=== PATIENT | male | born 1960 | race Caucasian/White ===

== ENCOUNTER 2022-11-15 12:34 | Inpatient (IN) | payer BC, SELFPAY ==
[~2022-11-15 12:34] MED LIST: Iopamidol 300 61% 100 ML VIAL FS ONE
[2022-11-15] MEDS ORDERED: Morphine 4 MG/ML VIAL ONE (12:52)
[2022-11-15 12:57] LABS: #Basophils 0.1 10x3/uL (0.0-0.2); #Eosinphils 0.2 10x3/uL (0.0-0.5); #Monocytes 1.1 10x3/uL (0.0-1.1); #Neutrophils 7.7 10x3/uL (1.5-8.4); %Basophils 0.9 % (0.0-2.0); %Eosinophils 1.2 % (0.0-6.0); %Lymphocytes 29.2 % (18.0-47.0); %Monocytes 8.9 % (0.0-10.0); %Neutrophils 59.6 % (40.0-75.0); Hemoglobin 15.3 g/dL (13.5-17.5); Mean Corpuscular HGB CONC 34.9 g/dL (32.0-36.0); Mean Corpuscular Hemoglobin 33.8 pg (27.0-33.0); Mean Corpuscular Volume 96.7 fl (81.2-95.1); Platelet Count 251 10x3/uL (150-450); RBC Distribution Width 13.1 % (11.5-14.5); Red Blood Cell (RBC) Count 4.53 10x6/uL (4.32-5.72); White Blood Cell (WBC) Count 12.9 10x3/uL (3.5-10.5)
[2022-11-15 13:15] LABS: ALT (SGPT) 13 U/L (8-55); AST (SGOT) 14 U/L (5-34); Albumin 4.4 g/dL (3.4-4.8); Alkaline Phosphatase 60 U/L (40-110); Anion Gap 17 mmol/L (10-20); BUN (Urea Nitrogen) 13 mg/dL (8.4-25.7); Bilirubin, Total 0.3 mg/dL (0.2-1.2); Calc. Creatinine Clearance 0 mL/min (70-130); Calcium 9.4 mg/dL (7.8-10.44); Carbon Dioxide 21 mmol/L (23-31); Chloride 106 mmol/L (98-107); Estimated GFR 97; Globulin 2.7 g/dL (2.4-3.5); Glucose 128 mg/dL (80-115); Magnesium 2.1 mg/dL (1.6-2.6); Potassium 3.7 mmol/L (3.5-5.1); Protein, Total 7.1 g/dL (5.8-8.1); Sodium 140 mmol/L (136-145)
[2022-11-15] MEDS ORDERED: Nitroglycerin 0.4 MG TAB 1 EACH ONE (13:33)
[2022-11-15] MEDS ORDERED: Ondansetron PF 4 MG/2 ML Vial ONE (13:54)
[2022-11-15 14:06] LABS: PTT 24.2 sec (22.0-33.0); Prothrombin Time 10.5 sec (9.5-12.1)
[2022-11-15] MEDS ORDERED: HYDROmorphone 0.5 MG/0.5 ML SYRINGE ONE ×2 (14:12→17:01)
[2022-11-15] MEDS ORDERED: Nitroglycerin 50 MG/250 ML BOT 250 ML ONE (14:21)
[2022-11-15 14:22] LABS: CKMB 1.8 ng/mL (0-6.6)
[2022-11-15 15:47] LABS: Troponin I 0.186 ng/mL (< 0.028)
[2022-11-15] MEDS ORDERED: Heparin 25,000 units/D5W 500 ML ONE (16:31)
[2022-11-15] MEDS ORDERED: Aspirin 325 MG TAB ONE (16:32)
[2022-11-15] MEDS ORDERED: Heparin 5,000 UNITS/ML VIAL ONE (17:07)
[2022-11-15] MEDS ORDERED: Morphine 2 MG/ML VIAL SLOW IVP PRN (17:26)
[2022-11-15] MEDS ORDERED: Nitroglycerin 0.4 MG TAB (25 Tab Bottle) SL PRN (17:26)
[2022-11-15] MEDS ORDERED: Nitroglycerin 50 MG/250 ML BOT 250 ML IVPB SCH (17:30)
[2022-11-15] MEDS ORDERED: Heparin 25,000 units/D5W 500 ML IVPB SCH (17:30)
[2022-11-15] MEDS ORDERED: Aspirin 325 mg Enteric Coated Tablet PO SCH (17:30)
[2022-11-15] MEDS ORDERED: Heparin 10,000 UNITS/ 10 ML VIAL SLOW IVP SCH (17:30)
[2022-11-15] MEDS ORDERED: Aspirin 300 MG Suppository PR PRN (17:46)
[2022-11-15 18:23] LABS: Hemoglobin 15.7 g/dL (13.5-17.5); Platelet Count 232 10x3/uL (150-450)
[2022-11-15 18:50] LABS: Troponin I 1.265 ng/mL (< 0.028)
[2022-11-15 18:56] LABS: SARS-CoV-2 NAA Rapid Test Not Detected (NotDetected)
[2022-11-15 19:17] VITALS: BMI 25.8
[2022-11-15] MEDS: Nicotine 14 MG PATCH TD SCH (20:14)
[2022-11-15] MEDS ORDERED: Metoprolol Tartrate 25 MG TAB PO SCH ×2 (21:00→23:59)
[2022-11-15] MEDS ORDERED: Rosuvastatin 20 MG TAB PO SCH (21:00)
[2022-11-15] MEDS: Ondansetron PF 4 MG/2 ML Vial IVP PRN (22:39)
[2022-11-15 23:40] LABS: Hemoglobin 15.2 g/dL (13.5-17.5)
[2022-11-15] MEDS: Pantoprazole 40 MG VIAL IVP SCH (23:46)
[2022-11-15 23:51] LABS: Anion Gap 16 mmol/L (10-20); BUN (Urea Nitrogen) 15 mg/dL (8.4-25.7); Calc. Creatinine Clearance 109 mL/min (70-130); Carbon Dioxide 23 mmol/L (23-31); Chloride 102 mmol/L (98-107); Potassium 4.3 mmol/L (3.5-5.1); Sodium 137 mmol/L (136-145)
[2022-11-15 23:52] LABS: Calcium 9.3 mg/dL (7.8-10.44); Estimated GFR 100; Glucose 146 mg/dL (80-115); Magnesium 2.1 mg/dL (1.6-2.6)
[2022-11-15] MEDS ORDERED: Sodium Chloride 0.9% 1,000 ML IV SCH (23:59)
[2022-11-15] MEDS ORDERED: TICAGRELOR 90 MG TABLET PO SCH (23:59)
[2022-11-16] MEDS ORDERED: Lactated Ringer's 500 ML IV SCH (03:30)
[2022-11-16] MEDS ORDERED: Pantoprazole 40 MG VIAL IVP SCH (03:30)
[2022-11-16 03:36] LABS: Hemoglobin 15.2 g/dL (13.5-17.5); Mean Corpuscular HGB CONC 34.4 g/dL (32.0-36.0); Mean Corpuscular Hemoglobin 33.9 pg (27.0-33.0); Mean Corpuscular Volume 98.4 fl (81.2-95.1); Mean Platelet Volume 10.6 fl (7.4-10.4); Platelet Count 217 10x3/uL (150-450); RBC Distribution Width 13.1 % (11.5-14.5); Red Blood Cell (RBC) Count 4.49 10x6/uL (4.32-5.72); White Blood Cell (WBC) Count 22.6 10x3/uL (3.5-10.5)
[2022-11-16 03:44] LABS: PTT 26.1 sec (22.0-33.0); Prothrombin Time 11.1 sec (9.5-12.1)
[2022-11-16 03:49] LABS: Cardiac Risk 4.4 (Less than 4.5)
[2022-11-16 03:56] LABS: MDiff Complete? YES
[2022-11-16 04:00] LABS: Band 7 % (5-11); Eosinophils 1 % (0-10); Lymphocytes 5 % (21-51); Monocytes 8 % (0-10); Neutrophil 79 % (42-75)
[2022-11-16 04:05] LABS: Platelet Morphology Comment Appears Adequate; RBC Morphology Normal
[2022-11-16] MEDS: Ondansetron PF 4 MG/2 ML Vial IVP PRN (04:51)
[2022-11-16] MEDS ORDERED: Lactated Ringer's 1,000 ML IV SCH (07:45)
[2022-11-16] MEDS ORDERED: Lidocaine 1% (PF) 30 ML VIAL ONE (08:16)
[2022-11-16] MEDS ORDERED: Heparin 10,000 UNITS/ 10 ML VIAL ONE ×2 (08:16→09:47)
[2022-11-16] MEDS ORDERED: Nitroglycerin 50 MG/250 ML BOT 250 ML ONE (08:16)
[2022-11-16] MEDS ORDERED: Adenosine 6 MG/2 ML VIAL ONE (08:17)
[2022-11-16] MEDS ORDERED: Atropine Sulfate 0.4 mg/1 ml Vial ONE (08:17)
[2022-11-16] MEDS: cefTRIAXone\\ROCEPHIN 1 GM in Sodium Chloride 0.9% 100 ML IVPB SCH (08:22)
[2022-11-16] MEDS: Aspirin Chewable 81 MG TAB PO SCH (08:23)
[2022-11-16] MEDS: Metoprolol Tartrate 25 MG TAB PO SCH ×2 (08:24→20:21)
[2022-11-16] MEDS ORDERED: Aspirin 300 MG Suppository PR SCH (09:00)
[2022-11-16 09:05] LABS: Bilirubin Neg (Negative); Blood, Urine Negative (Negative); Clarity Clear (Clear); Glucose, Urine (Dipstick) Normal (Negative); Ketone, Urine 5 mg/dL (Negative); Leukocyte 25 (Negative); Nitrite Negative (Negative); Protein, Urine (Dipstick) 30 mg/dl (Neg-Trace); Specific Gravity, Urine 1.015 (1.005-1.030); Urobilinogen Normal mg/dL (Less than 2); pH, Urine 6.5 (5.0-9.0)
[2022-11-16 09:16] LABS: RBC/HPF 0-3 HPF (0-3); Squamous Epithelial 0-3 HPF (0-3); WBC/HPF 0-3 HPF (0-3)
[2022-11-16] MEDS ORDERED: Fentanyl 100 MCG/2 ML VIAL ONE (09:16)
[2022-11-16 09:17] LABS: Bacteria/HPF 1+ HPF (None Seen)
[2022-11-16] MEDS ORDERED: Midazolam HCl 2 mg/2 ml Vial ONE (09:17)
[2022-11-16] MEDS ORDERED: Protamine Sulfate 250 MG/25 ML VIAL ONE (10:00)
[2022-11-16] MEDS ORDERED: Iopamidol 300 61% 100 ML VIAL FS ONE (10:17)
[2022-11-16] MEDS: Sodium Chloride 0.9% 1,000 ML IV SCH ×2 (11:00→20:22)
[2022-11-16] MEDS: Pantoprazole 40 MG VIAL IVP SCH ×2 (11:28→23:01)
[2022-11-16] MEDS: ALPRAZolam 0.5 MG TAB PO PRN ×2 (18:23→23:27)
[2022-11-16] MEDS: TICAGRELOR 90 MG TABLET PO SCH (20:22)
[2022-11-16] MEDS: Nicotine 14 MG PATCH TD SCH (20:25)
[2022-11-16] MEDS ORDERED: Atorvastatin Calcium 40 MG TAB PO SCH (21:00)
[2022-11-17 03:36] LABS: #Monocytes 1.3 10x3/uL (0.0-1.1); #Neutrophils 10.3 10x3/uL (1.5-8.4); %Basophils 0.2 % (0.0-2.0); %Eosinophils 0.3 % (0.0-6.0); %Lymphocytes 11.3 % (18.0-47.0); %Monocytes 9.8 % (0.0-10.0); Hemoglobin 12.6 g/dL (13.5-17.5); Mean Corpuscular HGB CONC 33.4 g/dL (32.0-36.0); Mean Corpuscular Hemoglobin 33.7 pg (27.0-33.0); Mean Corpuscular Volume 100.8 fl (81.2-95.1); Mean Platelet Volume 11.2 fl (7.4-10.4); Platelet Count 178 10x3/uL (150-450); RBC Distribution Width 13.3 % (11.5-14.5); Red Blood Cell (RBC) Count 3.74 10x6/uL (4.32-5.72); White Blood Cell (WBC) Count 13.2 10x3/uL (3.5-10.5)
[2022-11-17 03:47] LABS: ALT (SGPT) 39 U/L (8-55); AST (SGOT) 119 U/L (5-34); Albumin 3.6 g/dL (3.4-4.8); Alkaline Phosphatase 49 U/L (40-110); Anion Gap 12 mmol/L (10-20); BUN (Urea Nitrogen) 12 mg/dL (8.4-25.7); Bilirubin, Total 0.5 mg/dL (0.2-1.2); Calc. Creatinine Clearance 114 mL/min (70-130); Calcium 8.4 mg/dL (7.8-10.44); Carbon Dioxide 22 mmol/L (23-31); Chloride 108 mmol/L (98-107); Estimated GFR 101; Globulin 2.1 g/dL (2.4-3.5); Glucose 108 mg/dL (80-115); Potassium 3.9 mmol/L (3.5-5.1); Protein, Total 5.7 g/dL (5.8-8.1); Sodium 138 mmol/L (136-145)
[2022-11-17] MEDS: Sodium Chloride 0.9% 1,000 ML IV SCH (06:30)
[2022-11-17] MEDS: Aspirin Chewable 81 MG TAB PO SCH (08:07)
[2022-11-17] MEDS: cefTRIAXone\\ROCEPHIN 1 GM in Sodium Chloride 0.9% 100 ML IVPB SCH (08:08)
[2022-11-17] MEDS: Pantoprazole 40 MG VIAL IVP SCH (08:08)
[2022-11-17] MEDS: Metoprolol Tartrate 25 MG TAB PO SCH (08:08)
[2022-11-17] MEDS: TICAGRELOR 90 MG TABLET PO SCH (08:08)
[2022-11-17 08:39] LABS: Hemoglobin 12.2 g/dL (13.5-17.5); Platelet Count 178 10x3/uL (150-450)
[2022-11-17 11:39] VITALS: BP 116/70; TEMP 98.6
== END 2022-11-17 14:58 | disposition home or self-care (01) | DRG 247 ==
LOC: CSHERS 12:34 → CSHICU 17:26
PROVIDERS: ADMIT Family Medicine; ATTEND Family Medicine
PROC: 027034Z Dilation of Coronary Artery, One Artery with Drug-eluting Intraluminal Device, Percutaneous Approach (ICD-10-PCS; principal; 2022-11-16)
PROC: B241ZZ3 Ultrasonography of Multiple Coronary Arteries, Intravascular (ICD-10-PCS; 2022-11-16)
PROC: 4A023N7 Measurement of Cardiac Sampling and Pressure, Left Heart, Percutaneous Approach (ICD-10-PCS; 2022-11-16)
PROC: B2111ZZ Fluoroscopy of Multiple Coronary Arteries using Low Osmolar Contrast (ICD-10-PCS; 2022-11-16)
PROC: B2151ZZ Fluoroscopy of Left Heart using Low Osmolar Contrast (ICD-10-PCS; 2022-11-16)
DX: I21.4 Non-ST elevation (NSTEMI) myocardial infarction (principal); K92.0 Hematemesis; I47.20 Ventricular tachycardia, unspecified; I25.10 Atherosclerotic heart disease of native coronary artery without angina pectoris; Z95.5 Presence of coronary angioplasty implant and graft; Z20.822 Contact with and (suspected) exposure to COVID-19; Z91.010 Allergy to peanuts; F17.210 Nicotine dependence, cigarettes, uncomplicated; Z79.82 Long term (current) use of aspirin; Z79.02 Long term (current) use of antithrombotics/antiplatelets; Z79.899 Other long term (current) drug therapy; Z71.6 Tobacco abuse counseling; R00.1 Bradycardia, unspecified
CPT/HCPCS: 36415; 71045; 71275; 74174; 80053; 80061; 81001; 82553; 83735; 84484; 85025; 85347; 85610; 85730; 86850; 86900; 86901; 92928; 92978; 92979; 93005; 93010; 93458; 94760; 94762; 96365; 96366; 96375; 96376; 99152; 99153; C1753; C1760; C1769; C1874; C1887; C9113; C9600; J0153; J0461; J0696; J1170; J1644; J2001; J2250; J2270; J2272; J2405; J2720; J3010; J3490; J7050; J7120; Q9967; U0002